=== PATIENT | female | born 1985 | race Caucasian/White ===

== ENCOUNTER 2018-02-11 19:42 | Emergency (ER) | payer OTHER ==
[2018-02-11 20:41] VITALS: BMI 34.0
[2018-02-12 04:34] VITALS: BP 111/65; PULSE 95; RESP 15; TEMP 98.4
--- NOTE | 2018-02-12 12:07 | US ---
Date of service: 02/11/2018 PROCEDURE: Limited obstetrical ultrasound examination biophysical profile evaluation HISTORY: History IUFD, decreased movement COMPARISON: Not available TECHNIQUE: Transabdominal FINDINGS: Examination demonstrates a single live intrauterine gestation in cephalic presentation. The heart rate is 149 beats per minute. A grossly normal quantity of amniotic fluid is visualized. The amniotic fluid index is 13.6 cm. A posterior fundal placenta is identified. There is no evidence of placenta previa. The cervix measures 4.8 cm in length and is closed. anatomy was not evaluated at this time. biometry was not performed at this time. Limited biophysical profile evaluation yields a score of 8 out of 8. IMPRESSION: Single live intrauterine gestation. Reportedly 35 weeks 6 days. biometry not performed at this time. Biophysical profile evaluation yields a score of 8 out of 8. Cervix closed. No previa. The preliminary findings for this examination were reported by [facility] at 10:39 p.m. on 02/11/2018. There is concurrence of this report with the preliminary findings.
== END 2018-02-11 22:35 | disposition home or self-care (01) ==
LOC: H.EROB2 19:42
DX: O26.93 Pregnancy related conditions, unspecified, third trimester (principal); R10.2 Pelvic and perineal pain; O36.8130 Decreased fetal movements, third trimester, not applicable or unspecified; Z3A.35 35 weeks gestation of pregnancy

== ENCOUNTER 2018-02-28 10:03 | Emergency (ER) | payer OTHER ==
--- NOTE | 2018-02-28 10:29 | OBHP ---
Datetime: 02/11/2018 21:13 IP Adm Impression: , intrauterine IP Admit Plan: Observation/Evaluation; Discharge home Admit Comment, IP Provider: 32 yo at 35+2 wks by LMP, who presents w/ having blurry vision y esterday, has had cramps w/ tightenings for the last 2 nights, worse today, also reports feeling pelv ic pressure. Pt also reports decreased movement today. Pt denies VB, LOF, urinary sx. Pt repo rts that she has a cervical polyp with this . PMH: Healthy PSH: 2007 primary emergency c/s POb hx: 2006 37 wk IUFD, cord around the neck, VD 2007 38 wks emergency c/s for abn dopplers (?), 6#? Meds: Tums PRN All: NKDA Fam hx: N/c Tooth Cutter Spur hx: 10 x regular Pt denies STDs, abn paps PE: AFVSS Gen'l: pt appears comfortable lying in bed Heart: RRR Chest: Lungs CTA b/s Abd: soft, NT, gravid Ext: NT VE: closed/ long/ -[address] Rogers, OB fellow EFM: as above [place]: as above A/p: 32 yo at 35+2 wks c/o abdominal cramping, abdominal tightenings, and decreased movement. Pt given a pitcher of water to drink. Pt reports pain is the same but may be gas. FHT re active. BPP 8/8, MICHELLE 13.59. VE unchanged at 10:30 pm. Pt discharged home w/ PTL precautions. Pt to f/in in office w/ Dr. Herrera on , 02/14/2018. Extremities - PN: Normal Abdomen - PN: Normal Back - PN: Normal Lungs - PN: Normal Heart - PN: Normal Neurologic - PN: Normal HEENT - PN: Normal General - PN: Normal FHR - Baseline A Provider: 140's Membranes, Provider: Intact Contraction Comments Provider: irritability EGA AdmitDate IP: 35.2 IP Chief Complaint: Uterine contractions; Decreased movement NICHD Variability Prov Fetus A: Moderate 6-25bpm NICHD Accel Fetus A IP Provider: [id number] FHR Category Provider Fetus A: Category I NICHD Decel Fetus A IP Provider: None Dilatation, Provider: 0 Effacement, Provider: 0 Station, Provider: -3 Genitourinary Exam: Normal
[2018-02-28 10:41] VITALS: BMI 37.2
--- NOTE | 2018-02-28 13:17 | OBDCSUM ---
Datetime: 02/28/2018 13:15 Discharged to, Provider: Home Follow up at, Provider: Dr. Herrera Disch Instr Activity: Normal activity Disch Instr Diet: Regular Discharge Instructions, Provider: Routine instructions given Discharge Time: 02/28/2018 13:15 Follow up in weeks, Provider: 03/02 Disch Referrals: None Contraception discussed, Prov: Yes Discharge Diagnosis Prov Other: false labor Contraception after Delivery: Not Planning to Use
--- NOTE | 2018-02-28 13:17 | OBHP ---
Datetime: 02/28/2018 11:31 IP Adm Impression: Term, intrauterine ; No Active Labor IP Admit Plan: Observation/Evaluation; Discharge home Admit Comment, IP Provider: 32 y/o [id number] 37.6 weeks by LMP present w/ lower abdominal and back p ain started 4 am this mrtalib. Patient started having intermittent lower abdominal cramping, pressure and back pain for last 2 days which increased in intensity 4 am today. Patient is concerned because she fall on the [place]. Reports feeling normal movements. Denies any VB, LOF, urinary sx. Pt reports that she has a cervical polyp with this . : High risk due demise at 37 weeks, F/U weekly with Dr. Herrera. PObHx: 2006 37 wk IUFD, cord around the neck, VD 2007 38 wks emergency C/S for abn dopplers/cord around neck PGyn Hx: Denies abnormal paps, STIs, UTI rx w/macrobid in early pregancy PMH: None PSH: 2008 primary emergency c/s Meds:PRV All: NKDA Fam hx: DM - Father ROS: Denies CP, SOB, headache, dizziness, calf pain, N/V/C, vision change VSS, except for tachycardia 103 Physical Exam General: pt appears comfortable, lying in bed, No acute distress Heart: S1S2 present, RRR, Tachycardia, no murmurs Lungs: CTA B/L. No wheeze, rales, rhonchi Abdomen: Gravid, NT Ext: No pedal edema, NT SVE: closed 0cm/0%/-3, no active vaginal bleeding EFM: as above [place]: as above A/P: 32 yo at 37.6 wks c/o abdominal cramping,pressure and low back pain - EFM and TOCO monitoring - FHT reactive - TOCO: No contractions - Not in active labor - Pt discharged home w/ labor precautions - Pt to F/U w/ Dr. Herrera on 03/02/2018. Dejon Hall, PGY1 Addendum by Dr. Osullivan: I have evaluated the patient above independently and I agree with the above FHR - Baseline A Provider: 150 Membranes, Provider: Intact Comments, ACOG Physical Exam: VSS, except for tachycardia General: No acute distress Heart: S1S2 present, RRR, Tachycardia, no murmurs Lungs: CTA B/L. No wheeze, rales, rhonchi Abdomen: Gravid, NT Ext: No pedal edema, NT SVE: 0/0%/-3, no active vaginal bleeding Pool Provider: Negative EGA AdmitDate IP: 37.6 Vital Signs Provider: Reviewed IP Chief Complaint: Uterine contractions NICHD Variability Prov Fetus A: Moderate 6-25bpm NICHD Accel Fetus A IP Provider: 15X15 FHR Category Provider Fetus A: Category I NICHD Decel Fetus A IP Provider: None Dilatation, Provider: 0 Effacement, Provider: 0 Station, Provider: -3
[2018-02-28 16:26] VITALS: BP 106/68; PULSE 105; RESP 17; TEMP 98.6; O2SAT 96
== END 2018-02-28 11:35 | disposition home or self-care (01) ==
LOC: H.EROB2 10:03
DX: O26.93 Pregnancy related conditions, unspecified, third trimester (principal); R10.2 Pelvic and perineal pain; O09.293 Supervision of pregnancy with other poor reproductive or obstetric history, third trimester; Z3A.37 37 weeks gestation of pregnancy